=== PATIENT | male | born 1940 | race Caucasian/White ===

== ENCOUNTER 2021-08-22 07:37 | Outpatient (CLI) | payer OTHER, MEDICARE, SELFPAY ==
--- NOTE | 2021-08-22 07:56 | USCV_ITS ---
Brendan Reyes Age: 81 Gender: M : 1940 Exam Date: 08/22/2021 08:01 Ordering Phys: Jewel Kaiser DO Technologist: LYSSA Exam Location: [facility] [place] Indication: bilateral bruit Risk Factors: Previous Vascular Surgery: Right Brachial BP: / Left Brachial BP: / Right Left Velocity (cm/s) Spectral Plaque Velocity (cm/s) Spectral Plaque Syst/Diast Broadening Syst/Diast Broadening 41.90/ 6.70 Prox CCA 53.10 / 11.00 40.80/ 8.30 Mid CCA 44.90 / 12.80 33.80/ 8.90 Distal CCA 29.90 / 6.40 40.60/ 10.60 Prox ICA 31.50 / 10.70 46.40/ 13.10 Mid ICA 66.70 / 16.30 55.70/ 19.10 Distal ICA 61.70 / 17.00 64.60 ECA 53.30 1.36 ICA/CCA 1.49 Antegrade Vertebral Antegrade 30.60/ 11.50 cm/s 17.20/ 3.80 cm/s Tri Subclavian Bi 179.4 114.4 0 0 CONCLUSIONS Right ICA stenosis <50%. Moderate atheromatous plaque right carotid bulb/ICA. Left ICA stenosis <50%. Moderate atheromatous plaque left carotid bulb/ICA. Normal antegrade Doppler flow noted in the right vertebral artery. Normal antegrade Doppler flow noted in the left vertebral artery. Michele Castillo MD (Electronically Signed) Final Date: 22 August 2021 11:33 S
== END 2021-08-22 07:38 | disposition home or self-care (01) ==
PROVIDERS: PCP Nurse Practitioner; Visit Provider Emergency Medicine Emergency Medical Services
DX: R09.89 Other specified symptoms and signs involving the circulatory and respiratory systems (principal); I65.23 Occlusion and stenosis of bilateral carotid arteries
CPT/HCPCS: 93880

== ENCOUNTER 2023-08-19 07:50 | Outpatient (CLI) | payer OTHER, SELFPAY ==
--- NOTE | 2023-08-19 08:00 | USCV_ITS ---
Brendan Reyes Age: 83 Gender: M : 1940 Exam Date: 08/19/2023 08:19 Ordering Phys: Jewel Kaiser DO Technologist: Sharon Scott Exam Location: [facility] [place] Indication: cardiac murmur, HTN, BP: 135 / 65 HR: 52 Rhythm: Atrial fibrillation Technical Quality: Adequate MEASUREMENTS (Male / Female) Normal Values 2D ECHO LV Diastolic Diameter PLAX 4.6 cm 4.2 - 5.9 / 3.9 - 5.3 cm LV Systolic Diameter PLAX 3.4 cm IVS Diastolic Thickness 1.1 cm 0.6 - 1.0 / 0.6 - 0.9 cm IVS Systolic Thickness 2.4 cm LVPW Diastolic Thickness 0.8 cm 0.6 - 1.0 / 0.6 - 0.9 cm LVPW Systolic Thickness 1.1 cm LVOT Diameter 2.1 cm LV Ejection Fraction 2D Teich 53.6 % LV Ejection Fraction MOD 2C 41.3 % LV Ejection Fraction 2C AL 41.0 % LA Diameter 3.2 cm LA Width 4.0 cm LA Height 4.7 cm RA Width 3.2 cm RA Height 4.3 cm Aorta at Sinotubular Diameter 3.4 cm IVC Diameter 1.4 cm M-MODE Aortic Annulus Diameter 2.9 cm LA Ao Ratio MM 1.1 MV E Point Septal Separation 0.7 cm DOPPLER AV Peak Velocity 517.0 cm/s LVOT Peak Velocity 101.0 cm/s AV Area Cont Eq vti 0.7 cm squared AV Area Cont Eq pk 0.7 cm squared MV Peak Velocity 103.0 cm/s MV Area PHT 1.9 cm squared Mitral E to A Ratio 0.7 MV E' Velocity 37.0 cm/s Mitral E to MV E' Ratio 10.9 Mitral E to LV E' Lateral Ratio 9.8 Mitral E to LV E' Septal Ratio 12.4 TR Peak Velocity 248.3 cm/s TR Peak Gradient 24.7 mmHg Right Atrial Pressure 5.0 mmHg Pulmonary Artery Systolic Pressu 29.7 mmHg PV Peak Velocity 358.3 cm/s RV Acceleration Time 0.1 s RV Ejection Time 0.4 s RV AcT/ET 0.3 FINDINGS Left Ventricle Normal left ventricular size and systolic function, EF 62 %. Moderate left ventricular hypertrophy. No regional wall motion abnormalities. Grade I/IV diastolic dysfunction (abnormal relaxation filling pattern), normal to mildly elevated filling pressures. Right Ventricle Normal right ventricular size and systolic function. Right Atrium Normal right atrial size. Left Atrium Mildly increased left atrial size. Mitral Valve Moderate mitral annular calcification. Thickened mitral valve. Aortic Valve Moderate aortic valve calcification. Severe aortic valve stenosis, mean gradient 60 mmHg, JAVY 0.67 cm squared. Peak velocity of 5.17 m/s with a peak gradient of 107 mmHg . Tricuspid Valve Mild tricuspid valve regurgitation. Estimated pulmonary artery peak systolic pressure 46 mmHg Pulmonic Valve The peak velocity across the pulmonic valve was 3.9 m/s with a peak gradient of 61 and a mean gradient of 30 mmHg. Pericardium Normal pericardium without effusion. Aorta Normal ascending aorta dimension. IVC Normal inferior vena cava. CONCLUSIONS . Severe aortic valve stenosis, mean gradient 60 mmHg, JAVY 0.67 cm squared. Peak velocity of 5.17 m/s with a peak gradient of 107 mmHg . Moderate aortic valve calcification. Normal left ventricular size and systolic function, EF 62 %. Moderate left ventricular hypertrophy. No regional wall motion abnormalities. Grade I/IV diastolic dysfunction (abnormal relaxation filling pattern), normal to mildly elevated filling pressures. Mildly increased left atrial size. Moderate mitral annular calcification. Thickened mitral valve. Possible moderate to severe pulmonic valve stenosis with a mean gradient across the pulmonic valve of 30 mmHg Mild pulmonary hypertension with an estimated pulmonary artery peak systolic pressure of 46 mmHg. Mild tricuspid valve regurgitation. There is no pericardial effusion. There are no intracardiac masses. No similar previous studies are available for comparison. Dr. Kaiser's office is contacted with the results . Dr Abigail White MD [facility] (Electronically Signed) Final Date: 19 August 2023 09:29 S
== END 2023-08-19 07:51 | disposition home or self-care (01) ==
LOC: RAD 07:52
PROVIDERS: PCP Nurse Practitioner; Visit Provider Emergency Medicine Emergency Medical Services
DX: R06.09 Other forms of dyspnea (principal); R01.1 Cardiac murmur, unspecified; I10 Essential (primary) hypertension; I35.0 Nonrheumatic aortic (valve) stenosis; I70.0 Atherosclerosis of aorta; I34.81 Nonrheumatic mitral (valve) annulus calcification; I27.20 Pulmonary hypertension, unspecified; I07.1 Rheumatic tricuspid insufficiency
CPT/HCPCS: 93306

== ENCOUNTER 2023-08-23 08:31 | Outpatient (CLI) | payer OTHER, SELFPAY ==
--- NOTE | 2023-08-23 08:44 | ECG_ITS ---
[facility] Test Date: 2023-08-23 Pat Name: Brendan Reyes Department: Room: Gender: Male Pediatric Urologist: : 1940 Requested By: Jewel Sevilla Order Number: [id number] Damon MD: Abigail White M.D. Interpretive Statements NAME OF STUDY: LEXISCAN SESTAMIBI STRESS TEST INDICATION: Exertional Dyspnea PROCEDURE: At the baseline, the EKG revealed sinus bradycardia with a rate of [address]-T changes. Features of LVH. The baseline heart was 55 bpm with a blood pressue of 174/82 mm of Hg Lexiscan was infused over a period of 20 seconds. A total of 0.4 milligrams of Lexiscan was infused. The stress phase was continued for a total of 5 minutes. Heart rate at the end of the stress phase was 76 bpm with a blood pressure 129/69 mm of Hg. The EKG at the peak infusion revealed more prominent ST-T changes in the inferolateral leads. Sestamibi was injected 20 seconds after the Lexiscan infusion. Heart rate at the end of the recovery phase was 76 bpm with a blood pressure of 133/72 mm of Hg. CONCLUSION: 1. No significant EKG changes with the LexiScan infusion 2. No LexiScan induced chest pain or cardiac arrhythmia 3. Normal blood pressure and heart rate response 4. Sestamibi/sestamibi perfusion scan pending; see separate report. Electronically Signed On 08-23-2023 18:54:28 STATIONS SUPERINTENDENT by Abigail White M.D. [email or web address]
--- NOTE | 2023-08-23 08:44 | NMCV_ITS ---
NM anton perf SPECT r/s* [id number] Reyes Brendan Age: 83 Gender: M : 1940 Exam Date: 08/23/2023 08:44 Ordering Phys: Jewel Kaiser DO Technologist: EBENEZER Torres Exam Location: [facility] Indications: EXERTIONAL DYSPNEA STRESS TEST Please see separate stress test report in [facility] for full findings IMAGE PROTOCOL Rest/Stress 1 Lexiscan Day Radiopharmaceutical Dose (mCi) Administration Site Administered by Rest: Tc-99m 10.7 IV EBENEZER Torres Sestamibi Stress:Tc-99m 30.0 IV EBENEZER Roa Sestamibi Rest: 23-Aug-2023 60 Discovery 630 Stress: 23-Aug-2023 30 Discovery 630 0.4mg Lexiscan. Images obtained in supine and prone position. SPECT RESULTS Technical Quality: Excellent Raw Data Analysis: Normal Image Corrections: No attenuation or motion correction applied Summed Stress Score: 11 Summed Rest Score: 6 Summed Difference Score: 5 PERFUSION FINDINGS Moderate area of moderate to severely decreased tracer uptake, involving the mid and apical inferior, mid inferolateral, apical lateral and LV apex. Some reversibility was noted in the apical segments. However the prone imaging, no significant reversibility's were noted FUNCTIONAL RESULTS (calculated via Gated SPECT) Stress Image LV EF (%): 69 Stress EDV (mL):112 TID: 1 Stress ESV (mL):35 FUNCTIONAL FINDINGS: Segmental wall motion analysis revealing no gross wall motion abnormalities IMPRESSIONS 1. Myocardial perfusion imaging revealing moderate area of moderately decreased tracer uptake involving the inferior, inferolateral and apical segments with some reversibility suggesting myocardial scarring with ischemia in the distribution of the left circumflex artery/right coronary artery. Because of the inconsistency with the prone imaging, the reliability is somewhat compromised. 2. Normal LV ejection fraction 69% 3. LV wall motion analysis revealing no gross wall motion abnormalities. 4. Normal LV volume No similar previous studies are available for comparison Dr Abigail White MD [facility] (Electronically Signed) Final Date: 23 August 2023 12:38 S
[2023-08-23 09:06] VITALS: BMI 23.0
[2023-08-23] MEDS: regadenoson 0.4 Mg/5 ml Syringe IVP (10:38)
[2023-08-23 11:05] VITALS: BP 132/84; PULSE 82
== END 2023-08-23 08:32 | disposition home or self-care (01) ==
PROVIDERS: PCP Emergency Medicine Emergency Medical Services; Visit Provider Emergency Medicine Emergency Medical Services
DX: R06.00 Dyspnea, unspecified (principal)
CPT/HCPCS: 36415; 78452; 93017; 96374; A9500; J2785

== ENCOUNTER → 2023-09-05 10:35 | Outpatient (BNVA) | payer OTHER, SELFPAY | PROVIDERS: PCP Emergency Medicine Emergency Medical Services; Referring Provider Emergency Medicine Emergency Medical Services; Visit Provider Internal Medicine Cardiovascular Disease | DX: I35.0 Nonrheumatic aortic (valve) stenosis (principal); R94.39 Abnormal result of other cardiovascular function study; I11.0 Hypertensive heart disease with heart failure; I50.32 Chronic diastolic (congestive) heart failure; I38 Endocarditis, valve unspecified; E78.5 Hyperlipidemia, unspecified; Z79.01 Long term (current) use of anticoagulants; I48.91 Unspecified atrial fibrillation; I25.118 Atherosclerotic heart disease of native coronary artery with other forms of angina pectoris; R53.1 Weakness; J44.9 Chronic obstructive pulmonary disease, unspecified | CPT/HCPCS: 36415; 80053; 80061; 83880; 85025; 85610; 86850; 86900; 99205 ==

== ENCOUNTER 2023-09-06 05:36 | Outpatient (CLI) | payer OTHER, SELFPAY ==
[2023-09-06] VITALS (36 sets, daily range): BP systolic 100–167; BP diastolic 52–70; PULSE 47–71; RESP 14–30; TEMP 36.4–37.2; O2SAT 93–99; BMI 23.0
--- NOTE | 2023-09-06 06:00 | XACV_ITS ---
Exam Room: [facility] Ht: 180 cm Wt: 75 kg BSA: 1.94 m2 Gender: Male : 1940 Exam Priority: Routine Procedure(s): Procedure Description: Diagnostic procedure Procedure Description: PCI procedure Procedure Description: Drug Eluting Coronary Stent Procedure Description: PTCA Procedure Description: Miscellaneous Procedure Description: ACT Procedure Description: Coronary Angiography Procedure Description: Pressure Wire Procedure Description: Intravascular lithotripsy with shockwave balloon Diagnostic Cath Status: Urgent Diagnostic Findings * The left main is a medium caliber vessel with no significant stenotic lesions. * The left anterior descending artery is a medium caliber vessel which appears to wraparound LV apex minimally. Moderate to heavy diffuse calcification was noted in the proximal segment of the artery. There is an area of filling defect noted in the proximal segment, before the first diagonal, causing around 70 to 80% eccentric narrowing. The mid and distal artery was found to have mild diffuse disease. No significant stenotic lesions were noted. The left artery descending artery also was found to have mild diffuse disease in the proximal and mid segment. No significant stenotic lesions were seen. * The circumflex artery is a medium caliber vessel which was found to have moderate diffuse calcification in the proximal and mid segment. There was 30 to 40% diffuse irregular narrowing in these segments. The distal artery was found to have no significant lesions. The artery gives of a high obtuse marginal branch which has minimal intimal irregularities. No significant stenotic lesions were noted. * The right coronary artery was medium caliber dominant vessel which has a high and posterior takeoff. Selective engagement was difficult. Mild diffuse intimal irregularities are noted throughout the vessel. Mild to moderate diffuse coronary calcification was noted throughout the proximal and mid segment of the artery. * Coronary angiography shows right dominance. PCI Status: Elective PCI Indication: Other Interventional Findings * Procedure detail: We engaged the left main artery with XB 3.5 guide catheter. IV heparin was administered to maintain anticoagulation. After normalization IFR wire was advanced into the distal vessel. iFR value of 0.64 was obtained that was significant. We then proceeded with PCI. Proximal part of the vessel was calcified. We advanced a run-through wire and was put in distal vessel. Initially we used 2.5 x 12 mm NC balloon to predilate the stenosis. Then shockwave balloon was used to perform intravascular lithotripsy. It was 3.0 x 12 mm shockwave balloon. We placed 2.5 x 15 mm resolute Akhil drug-eluting stent. Proximally an overlapping stent measuring 2.75 x 18 mm was placed. We then postdilated the stents with 2.75 x 12 mm NC balloon. At this time final angiogram was performed that showed excellent stent expansion, no residual stenosis and PARI-3 flow. Guidewire and guide catheter were removed. Patient left the Slip Maker in a stable condition. * Proximal Left Anterior Descendin% stenosis treated with a MDT NC EUPHORA RX [id number] BALLOON, Shockwave 3.0x12mm, MDT R AKHIL 2.5X15 JAY, MDT R AKHIL 2.75X18 JAY, and MDT NC EUPHORA RX 2.30M45HG BALLOON. 0% residual stenosis, PARI: 3 flow. Conclusions 1. 83-year-old white male, with a history of hypertension, dyslipidemia and COPD presents with progressive shortness of breath. Echocardiogram showed severe aortic valve stenosis with a valve area 0.67 cm2. Patient also had features of diastolic heart failure. He also had a Myocardial perfusion imaging which revealed areas of fixed and revesible defects . For further evaluation of his coronary status as well as the hemodynamics, a left and right heart catheterization with left and right coronary angiogram was recommended. The findings are as follows. 2. The left main with no significant lesions. The left and descending artery was found to have moderate to heavy calcification of proximal segment with an area of filling defect suggesting eccentric stenosis of around 70 to 80%. Diffuse calcification of the proximal segment of the right coronary artery and circumflex artery. 30 to 40% diffuse irregular narrowing in the proximal to mid circumflex artery. Minimal intimal irregularities in the right coronary artery. The right heart catheterization revealed mild pulmonary hypertension with no evidence of any intracardiac shunt. Cardiac output of 4 with an index of 2.0. 3. I discussed and reviewed the cardiac catheterization data with Dr. Barr. There is thought to be appropriate to consider IFR of the LAD lesion and possible PCI. Consider the valve intervention at the later time. 4. Severe proximal LAD stenosis s/p successful revascularization with intravascular lithotripsy using shockwave balloon and did 2 stents. 5. There is obstructive coronary artery disease with one vessel disease. 6. Proximal Left Anterior Descending was treated with a Balloon, Balloon, Drug Eluting Stent, Drug Eluting Stent, and Balloon. Recommendations * Dual antiplatelet therapy for atleast 1 year. * Cardiology follow up in 2 weeks. * Referral for TAVR. Diagnostic RX Recommendation: PCI w/o planned CABG Pressures Phase:Rest AO : 82 / 51 ( 64 ) @ 7:58:00 AM 84 / 63 ( 74 ) @ 8:05:00 AM 89 / 63 ( 76 ) @ 8:26:00 AM 85 / 52 ( 67 ) @ 8:49:00 AM 100 / 50 ( 69 ) @ 9:13:00 AM 85 / 49 ( 65 ) @ 9:29:00 AM 75 / 46 ( 59 ) @ 9:49:00 AM RV : 47 / 0 / 10 @ 7:48:00 AM PA : 57 / 18 ( 30 ) @ 7:46:00 AM RA : a wave = 10 v wave = 9 mean = 8 @ 7:49:00 AM PCW : a wave = 13 v wave = 13 mean = 11 @ 7:47:00 AM O2 Content Phase:Rest PA : O2 Content O2: 66.3 @ 7:58:00 AM Saturations Phase:Rest AO : 95 @ 8:49:00 AM RA : 70 @ 8:26:00 AM RV : 68 @ 8:05:00 AM PA : 66 @ 7:58:00 AM Cardiac Output Phase:Rest Jean Paul : 4 @ 1:34:28 PM Jean Paul Cardiac Index: 2 @ 1:34:28 PM Flow Phase:Rest Qp : 4 @ 1:34:28 PM Qs : 5 @ 1:34:28 PM Clinical Evaluation EBL: 5mL-10mL Procedural Details Procedure Consent Obtained. Admit Source: Out Patient. Pre-Procedure Time Out. Identified patient by full name and date of as verbalized by the patient/guarantor. Does the consent match the physician's order: Yes. Accurate & Complete Informed Consent: Yes. Inpatient/Outpatient History & Physical on Chart: Yes. If H&P is completed, is and addenduem needed: No; If yes, is the addendum complete: N/A. Visualize and Verify Site with Patient/Guarantor: N/A. Relevant Radiology Images available: Yes. Pre-op teaching completed and patient verbalized understanding. The risks, benefits, and alternatives of sedation and/or procedure were discussed by physician. The patient agrees to continue. Procedure started. [facility] Clinical Fraility Score: 4: Vulnerable. Slip Maker Indications: Cardiomyopathy. Chest Pain Symptom Assessment: Asymptomatic. Correct patient, site and procedure confirmed by cath team. Current diagnosis: CHF, Abnormal Stress Test. PERRLA. Strong, equal hand rotor winder bilaterally. Lungs clear x 5 lobes. IV Site on Arrival: 20 gauge in the left anticubital. IV Site on Arrival: 20 gauge in the right anticubital. IV Fluids: 0.9% NaCl at KVO. 0 mL infused prior to clinical laboratory scientist. Pre Procedural Pulses: bilateral radial was 3+. Pre Procedural Pulses: bilateral dorsalis pedis was 2+. Pre Procedural Pulses: bilateral posterior tibial was 2+. Oxygen started at 2liters/min via nasal canula. right groin was prepped with chloroprep then draped in the usual sterile fashion. right radial was prepped with chloroprep then draped in the usual sterile fashion. Baseline sample Acquired. HR: 51 BPM. Physician notified. Physician arrived. Physician scrubbed in. Immediate Pre-Procedure Time Out. Correct Patient: Yes; Correct Procedure: Yes; Correct Site: Yes; Correct Patient Position: Yes; Correct Supplies: Yes; Dried Flammable Prep: Yes; Blood Products Available: N/A;. Lidocaine 1% infiltrated to the right brachial. Wire inserted through R brachial IV access site. IV catheter removed over wire. 6Fr sheath inserted over wire into R brachial vein. Archer-Scooby MON catheter inserted. Hand injection performed through the Archer-Scooby catheter. Sage wire inserted through the Archer-Scooby catheter. Sage wire removed. Pressure measurements obtained. Archer-Scooby out. Lidocaine 1% infiltrated to the right radial. Arterial access obtained. ABG drawn and sent with respiratory therapy. A 5 syrian Jean-Pierre catheter in over wire. Multiple views taken of left coronary artery. Catheter removed over the exchange wire. A 5 syrian JR4 catheter in over wire. Catheter removed over the exchange wire. A 5 syrian 3DRC catheter in over wire. Catheter removed over the exchange wire. A 5 syrian AR MOD catheter in over wire. Angiography performed of RCA. Catheter removed over the exchange wire. A 5 syrian JR4 catheter in over wire. Patient's family updated. Catheter removed over the exchange wire. A 5 syrian 3DRC catheter in over wire. Catheter removed over the exchange wire. Dr. Barr scrubbed in to perform intervention. 6 syrian XB 3.5 guide catheter was inserted over the wire. IFR guidewire was advanced through the guide catheter to lesion in the prox LAD. IFR spot of Prox LAD 0.65. Runthrough guidewire was advanced through the guide catheter to lesion in the prox LAD. IFR wire removed. ACT drawn. Results 383 seconds. Therapeutic limits - pre-heparin administration 90-150 seconds and monitoring heparin during a vascular procedure >250 seconds. 3.0 x 12mm Shockwave catheter in over the wire. Shockwave catheter out over the wire. Guideliner inserted over the wire. Shockwave catheter inserted over the wire. Shockwave catheter removed. Balloon inserted to lesion in the prox LAD. Inflation number : 1 A MDT NC EUPHORA RX 2.17X99IC BALLOON was prepped and advanced across the Prox LAD , then inflated to 6 ERMA for 0:10 seconds. Inflation number: 2 The MDT NC EUPHORA RX 2.36O37UG BALLOON was reinflated across the Prox LAD, to 6 ERMA for 0:15 seconds. Inflation number: 3 The MDT NC EUPHORA RX 2.13O98DJ BALLOON was reinflated across the Prox LAD, to 8 ERMA for 0:15 seconds. Inflation number: 4 The MDT NC EUPHORA RX 2.40L51BD BALLOON was reinflated across the Prox LAD, to 6 ERMA for 0:08 seconds. Balloon out. Shockwave balloon inserted over the wire. Inflation number : 5 A Shockwave 3.0x12mm was prepped and advanced across the Prox LAD , then inflated to 4 ERMA for 0:14 seconds. Inflation number: 6 The Shockwave 3.0x12mm was reinflated across the Prox LAD, to 4 ERMA for 0:16 seconds. Shockwave balloon out over the wire. Balloon inserted to lesion in the prox LAD. Inflation number: 7 The MDT NC EUPHORA RX 2.03Y87GI BALLOON was reinflated across the Prox LAD, to 12 ERMA for 0:08 seconds. Inflation number: 8 The MDT NC EUPHORA RX 2.12U35QY BALLOON was reinflated across the Prox LAD, to 12 ERMA for 0:06 seconds. Inflation number: 9 The MDT NC EUPHORA RX 2.40I64OC BALLOON was reinflated across the Prox LAD, to 12 ERMA for 0:08 seconds. Inflation number: 10 The MDT NC EUPHORA RX 2.69E17PY BALLOON was reinflated across the Prox LAD, to 12 ERMA for 0:07 seconds. Balloon out. 2.75 x 30mm Stent inserted to lesion in the prox LAD. Unable to cross lesion. Intact stent out over the wire. 2.5 x 15mm Stent inserted to lesion in the prox LAD. Unable to cross lesion. Intact stent out over the wire. Shockwave Balloon inserted to lesion in the prox LAD. Shockwave balloon out over wire. Stent inserted to lesion in the prox LAD. Inflation Number : 11 A MDT R AKHIL 2.5X15 JAY -Lot Number# [id number] Exp 05/20/2025 was prepped and advanced across the Prox LAD. The stent was deployed at 12 ERMA for 0:13 seconds. Stent balloon out over wire. Stent inserted to lesion in the prox LAD. Inflation Number : 12 A MDT R AKHIL 2.75X18 JAY -Lot Number# [id number] Exp 01/05/26 was prepped and advanced across the Prox LAD. The stent was deployed at 12 ERMA for 0:16 seconds. Stent balloon out over wire. Balloon inserted to lesion in the prox LAD. Inflation number : 13 A MDT NC EUPHORA RX 2.81W98EH BALLOON was prepped and advanced across the Prox LAD , then inflated to 12 ERMA for 0:08 seconds. Inflation number: 14 The MDT NC EUPHORA RX 2.31O14RE BALLOON was reinflated across the Prox LAD, to 16 ERMA for 0:15 seconds. Inflation number: 15 The MDT NC EUPHORA RX 2.32P97MB BALLOON was reinflated across the Prox LAD, to 20 ERMA for 0:15 seconds. Inflation number: 16 The MDT NC EUPHORA RX 2.82P59OF BALLOON was reinflated across the Prox LAD, to 20 ERMA for 0:12 seconds. Balloon out. Guideliner out. Results checked. Wire out. ACT drawn. Results 391 seconds. Therapeutic limits - pre-heparin administration 90-150 seconds and monitoring heparin during a vascular procedure >250 seconds. Guide catheter out. Physician scrubbed out. A Manual Compression was successful obtaining hemostatsis at the Right Brachial Vein insertion site. A TR Band was successful obtaining hemostatsis at the Right Radial artery insertion site. Post Procedure: Pulses reassessed and unchanged. PERRLA. Strong, equal hand rotor winder bilaterally. No VTE prophylaxis required. Medication's Wasted: Nitro = 49.8 mg. Medication's Wasted: Lidocaine 1% = 3 mL. Medication's Wasted: Other = Fentanyl 50mcg. Total IV fluids: 416 mL. Post-op diagnosis: Severe Prox LAD stenosis S/P stenting x2. Medication's Wasted: Heparin = 2000 u. Complications: none. Estimated blood loss: 5mL-10mL. Responsiveness - Normal response to verbal stimuli; alert and oriented, PERRLA. Airway - Unaffected, no intervention required; spontaneous ventilation. Circulation: W/N/L, pulses unchanged. Nausea/Vomiting: No. Procedure completed. Patient transferred by wheelchair to CPRU. Vital chart was stopped. Access Site Site: Right Brachial Vein Sheath Size: 6 Fr Hemostasis Method: Manual Compression Hemostasis Success: Successful Site: Right Radial artery Sheath Size: 6 Fr Hemostasis Method: TR Band Hemostasis Success: Successful Procedure Medications Start: 7:35 AM Stop: 7:35 AM Medication: Versed Amount: 1 mg Route: I.V. Start: 7:35 AM Stop: 7:35 AM Medication: Fentanyl Amount: 25 mcg Route: I.V. Start: 7:55 AM Stop: 7:55 AM Medication: Nitrogylcerin Amount: 200 mcg Route: I.A. Start: 7:55 AM Stop: 7:55 AM Medication: Verapamil Amount: 5 mg Route: I.A. Start: 7:56 AM Stop: 7:56 AM Medication: 0.9% Saline Amount: 250 ml Route: I.V. bolus Start: 7:57 AM Stop: 7:57 AM Medication: Heparin Amount: 5000 units Route: I.V. Start: 8:32 AM Stop: 8:32 AM Medication: Versed Amount: 1 mg Route: I.V. Start: 8:48 AM Stop: 8:48 AM Medication: Heparin Amount: 2000 units Route: I.V. Start: 9:20 AM Stop: 9:20 AM Medication: Versed Amount: 1 mg Route: I.V. Start: 9:20 AM Stop: 9:20 AM Medication: Fentanyl Amount: 25 mcg Route: I.V. Start: 9:22 AM Stop: 9:22 AM Medication: Heparin Amount: 1000 units Route: I.V. Start: 9:35 AM Stop: 9:35 AM Medication: Fentanyl Amount: 25 mcg Route: I.V. Start: 9:36 AM Stop: 9:36 AM Medication: Versed Amount: 1 mg Route: I.V. Start: 10:01 AM Stop: 10:01 AM Medication: Plavix Amount: 600 mg Route: P.O. I, the attending physician, have reviewed and verified all procedure medications. Yes, all medications given per verbal order History/Risk Factors Hypertension: Yes Dyslipidemia: Yes Peripheral Arterial Disease (PAD): No Myocardial Infarction (VA): No Obesity: No Renal Disease: No Tobacco Use: Former Prior Interventions PCI: No CABG: No Valve Surgery: No Report Signatures Finalized by Dr Abigail White MD [facility] on 09/29/2023 08:03 PM
[2023-09-06] MEDS: aspirin 325 mg Tablet PO (06:34)
[2023-09-06] MEDS: diphenhydrAMINE 50 mg Capsule PO (06:34)
--- NOTE | 2023-09-06 07:00 | P.HPUD_ITS ---
Surgery/Procedure H&P Update DATE OF PROCEDURE: September 06, 2023 DATE H&P PERFORMED: 09/05/23 H&P UPDATE INFORMATION: I have reviewed H&P completed within last 30 days, I have examined patient prior to procedure and No changes to prior documentation PREOP DIAGNOSIS: Severe / CHF PRIMARY INDICATION FOR PROCEDURE: CHF,/ CP PLANNED PROCEDURE: Operation Date: 09/06/23 07:00 Proposed Procedures p [facility] [address]88 I35.0,R94.39,I50.30,I38 ,I10,E78.5(Bilateral) - Abigail White MD PATIENT REASSESSED PRIOR TO SEDATION, WITH NO CHANGE NOTED: Yes PHYSICAL EXAM: alert, oriented x 3, clear to auscultation bilaterally and regular rate & rhythm AIRWAY EVAL/ANESTHESIA PLAN: normal airway, see other exam findings, ASA III, Monitored Anesthesia, Local Anesthesia, Risks, benefits & alternatives of sedation and/or procedure discussed and Patient agrees to continue as planned
[2023-09-06 08:11] LABS: Arterial Blood Gas Hematocrit 14.7 % (42-52); Blood Gas Operator Identificat glc; Blood Gas Sample Site Not specified; Blood Gas Sample Type Not specified; Carboxyhemoglobin 1.2 %THgb (0.4-20.1); HGB O2 Sat 92.7 % (95-100); Methemoglobin 1.2 % (0.4-1.5); Total Hemoglobin 4.8 g/dL (14-18)
[2023-09-06 08:15] LABS: Arterial Blood Gas Hematocrit 27.7 % (42-52); Blood Gas Operator Identificat glc; Blood Gas Sample Site Not specified; Blood Gas Sample Type Not specified; Carboxyhemoglobin 1.3 %THgb (0.4-20.1); HGB O2 Sat 68.7 % (95-100); Methemoglobin 0.7 % (0.4-1.5)
[2023-09-06 08:19] LABS: Blood Gas Operator Identificat glc; Blood Gas Sample Site Not specified; Blood Gas Sample Type Not specified; Carboxyhemoglobin 1.2 %THgb (0.4-20.1); HGB O2 Sat 66.4 % (95-100); Methemoglobin 0.6 % (0.4-1.5); Total Hemoglobin 11.4 g/dL (14-18)
[2023-09-06 08:22] LABS: Arterial Blood Gas Hematocrit 41.6 % (42-52); Blood Gas Operator Identificat glc; Blood Gas Sample Site Not specified; Blood Gas Sample Type Not specified; Carboxyhemoglobin 1.2 %THgb (0.4-20.1); HGB O2 Sat 65.2 % (95-100); Methemoglobin 0.5 % (0.4-1.5); Total Hemoglobin 13.6 g/dL (14-18)
[2023-09-06] MEDS: pantoprazole DR 40 mg Tablet PO (14:45)
[2023-09-06] MEDS: alfuzosin 10 mg ER Tablet PO (19:58)
[2023-09-06] MEDS: atorvastatin 40 mg Tablet 20 MG PO (19:58)
[2023-09-06] MEDS: finasteride 5 mg Tablet PO (19:59)
[2023-09-06] MEDS: gabapentin 100 mg Capsule PO (19:59)
[2023-09-07] VITALS: BP 131/60; PULSE 62; RESP 19; TEMP 37.1; O2SAT 95
[2023-09-07 04:00] VITALS: BP 123/59; PULSE 70; RESP 22; TEMP 37.2; O2SAT 95
[2023-09-07 04:09] LABS: Basophils # 0.1 10^3/uL (0.0-0.1); Basophils % 1.2 %; Eosinophils # 0.2 10^3/uL (0.0-0.8); Eosinophils % 2.2 %; Hematocrit 35.8 % (37-53); Lymphocytes % 13.2 %; Mean Corpuscular HGB Conc 33.2 g/dL (30-55); Mean Corpuscular Hemoglobin 30.7 pg (27-33); Mean Corpuscular Volume 92.5 fl (82-101); Mean Platelet Volume 9.1 fL (7.4-10.4); Monocytes # 0.8 10^3/uL (0.2-0.9); Monocytes % 10.9 %; Neutrophils # 5.38 10^3/uL (1.8-7.7); Neutrophils % 72.2 %; Nucleated Red Blood Cells % 0 %; Platelet Count 186 10^3/cmm (157-399); Red Blood Count 3.87 10^6/uL (3.85-5.65); Red Cell Distribution Width 13.8 % (12.1-15.1); White Blood Count 7.44 10^3/uL (3.29-11.43)
[2023-09-07 04:35] LABS: Blood Urea Nitrogen 14 mg/dL (8-23); Calcium 8.7 mg/dL (8.5-10.5); Carbon Dioxide 29 mmol/L (22-29); Chloride 101 mmol/L (98-107); Glucose 105 mg/dL (65-115); Osmolality Calculated 287 mOsm/kg (285-295); Sodium 138 mmol/L (136-145)
[2023-09-07 06:00] VITALS: PULSE 60
[2023-09-07 07:40] VITALS: BP 120/60; PULSE 63; RESP 15; TEMP 36.5; O2SAT 94
[2023-09-07] MEDS: aspirin 81 mg EC Tablet PO (08:18)
[2023-09-07] MEDS: losartan 50 mg Tablet 100 MG PO (08:18)
[2023-09-07] MEDS: pantoprazole DR 40 mg Tablet PO (08:18)
[2023-09-07] MEDS: metoprolol succinate ER (24 HR) 100 mg Tablet PO (08:18)
[2023-09-07] MEDS: clopidogrel 75 mg Tablet PO (08:18)
[2023-09-07] MEDS: hydroCHLOROthiazide 25 mg Tablet PO (08:18)
--- NOTE | 2023-09-07 10:40 | PM.PN ---
Subjective Subjective: This patient had a cardiac catheterization yesterday. He was found to have a hemodynamically significant stenosis in the proximal LAD. He underwent PCI of this lesion by Dr. Barr. He was admitted to hospital for further monitoring and management. He remained stable throughout the hospital course. Did not have any hematoma bleeding from the arterial puncture site. The vital signs remained stable. Medications: Medication Review Details: Current Medications Acetaminophen (Acetaminophen 325 Mg Tablet) 650 mg PO Q6H PRN PRN Reason: MILD PAIN Al Hydrox/Mg Hydrox/Simethicone (Ijxn-Gxs-Lllmdtyhy-Edison 30 Ml Udc) 30 ml PO Q15M PRN PRN Reason: INDIGESTION Alfuzosin HCl (Alfuzosin 10 Mg Er Tablet) 10 mg PO BEDTIME REPLACED BY [facility] Last Admin: 09/06/23 19:58 Dose: 10 mg Aspirin (Aspirin 81 Mg Ec Tablet) 81 mg PO DAILY REPLACED BY [facility] Last Admin: 09/07/23 08:18 Dose: 81 mg Atorvastatin Calcium (Atorvastatin 40 Mg Tablet) 20 mg PO BEDTIME REPLACED BY [facility] Last Admin: 09/06/23 19:58 Dose: 20 mg Atropine Sulfate (Atropine 1 Mg/Ml Sdv 1 Ml) 0.5 mg IVP PRN PRN PRN Reason: Symptomatic bradycardia Clopidogrel Bisulfate (Clopidogrel 75 Mg Tablet) 75 mg PO DAILY REPLACED BY [facility] Last Admin: 09/07/23 08:18 Dose: 75 mg Fentanyl (Fentanyl 50 Mcg/Ml Inj 2ml) 50 mcg IVP PRN PRN PRN Reason: Prior to sheath removal Finasteride (Finasteride 5 Mg Tablet) 5 mg PO BEDTIME REPLACED BY [facility] Last Admin: 09/06/23 19:59 Dose: 5 mg Gabapentin (Gabapentin 100 Mg Capsule) 100 mg PO BEDTIME REPLACED BY [facility] Last Admin: 09/06/23 19:59 Dose: 100 mg Hydrochlorothiazide (Hydrochlorothiazide 25 Mg Tablet) 25 mg PO DAILY REPLACED BY [facility] Last Admin: 09/07/23 08:18 Dose: 25 mg Losartan Potassium (Losartan 50 Mg Tablet) 100 mg PO DAILY REPLACED BY [facility] Last Admin: 09/07/23 08:18 Dose: 100 mg Magnesium Hydroxide (Magnesium Hydroxide 30 Ml Udc) 30 ml PO DAILY PRN PRN Reason: CONSTIPATION Metoprolol Succinate (Metoprolol Succinate Er (24 Hr) 100 Mg Tablet) 100 mg PO DAILY REPLACED BY [facility] Last Admin: 09/07/23 08:18 Dose: 100 mg Naloxone HCl (Naloxone 0.4 Mg/Ml Sdv) 0.1 mg IVP Q2M PRN PRN Reason: RESPIRATORY RATE < 8/MIN Nitroglycerin (Nitroglycerin 0.4 Mg Sublingual Tablet) 0.4 mg SUBLINGUAL Q5M PRN PRN Reason: CHEST PAIN Pantoprazole Sodium (Pantoprazole Dr 40 Mg Tablet) 40 mg PO DAILY [facility]ILAH Last Admin: 09/07/23 08:18 Dose: 40 mg Temazepam (Temazepam 15 Mg Capsule) 15 mg PO BEDTIME PRN PRN Reason: INSOMNIA Vitals/I&O/Wt Last Vital Signs Temp 97.7 F 09/07/23 07:40 Pulse 63 09/07/23 07:40 Resp 15 09/07/23 07:40 BP 120/60 09/07/23 07:40 Pulse Ox 94 09/07/23 07:40 O2 Del Method Room Air 09/07/23 07:40 09/06/23 09/07/23 09/07/23 22:59 06:59 14:59 Intake Total 300 / 300 480 / 480 Balance 300 / 300 480 / 480 Weight last 48 hrs Weight 154 lb 8 oz Weight 165 lb Weight 165 lb Physical Exam Narrative: GENERAL: The patient is alert and oriented times three. Not in any acute distress. HEENT: No significant pallor, icterus or lymphadenopathy.Oral cavity: There are no mucous membrane lesions. NECK: Trachea appears to be central. No masses noted. No JVD or thyromegaly appreciated. RESPIRATORY: Chest is symmetrical. No intercostals muscle retraction or any accessory muscle activation. There is no chest wall tenderness. Breath sounds are heard bilaterally. No rales or rhonchi heard. No evidence of any consolidation. BREASTS: Deferred. HEART: The heart sounds are normal. No S3 or S4. Ejection systolic murmur grade 4 or 6 in the aortic area. No diastolic murmurs. No pericardial rub ABDOMEN: No vessel pulsations or distention. No tenderness. No organomegaly appreciated. Bowel sounds are normally heard. : Deferred. RECTAL: Deferred. LYMPHATIC: No lymphadenopathy noted in the neck. EXTREMITIES: No edema or cyanosis. No clubbing. The radial arterial puncture site has no hematoma bleeding MUSCULOSKELETAL: No acute joint deformities or swelling SKIN: There are no significant rashes or ecchymosis NEUROPSYCHIATRIC: The patient is alert and oriented x3. Appears to be in a good mood. No tremors or rigidity noted. Data 09/07/23 03:53 09/07/23 03:53 Other Labs: Laboratory Last Values WBC 7.44 10^3/uL (3.29-11.43) 09/07/23 03:53 RBC 3.87 10^6/uL (3.85-5.65) 09/07/23 03:53 Hgb 11.90 g/dL (11.27-16.99) 09/07/23 03:53 Hct 35.8 % (37-53) L 09/07/23 03:53 MCV 92.5 fl (82-101) 09/07/23 03:53 MCH 30.7 pg (27-33) 09/07/23 03:53 MCHC 33.2 g/dL (30-55) 09/07/23 03:53 RDW 13.8 % (12.1-15.1) 09/07/23 03:53 Plt Count 186 10^3/cmm (157-399) 09/07/23 03:53 MPV 9.1 fL (7.4-10.4) 09/07/23 03:53 Neut % (Auto) 72.2 % 09/07/23 03:53 Lymph % (Auto) 13.2 % 09/07/23 03:53 Meigs % (Auto) 10.9 % 09/07/23 03:53 Eos % (Auto) 2.2 % 09/07/23 03:53 Baso % (Auto) 1.2 % 09/07/23 03:53 Neut # (Auto) 5.38 10^3/uL (1.8-7.7) 09/07/23 03:53 Lymph # (Auto) 1.0 10^3/uL (0.8-4.8) 09/07/23 03:53 Meigs # (Auto) 0.8 10^3/uL (0.2-0.9) 09/07/23 03:53 Eos # (Auto) 0.2 10^3/uL (0.0-0.8) 09/07/23 03:53 Baso # (Auto) 0.1 10^3/uL (0.0-0.1) 09/07/23 03:53 Nucleated RBC % (auto) 0 % 09/07/23 03:53 Nucleated RBCs # 0.0 /100WBC 09/07/23 03:53 Specimen Type Not specified 09/06/23 08:00 Specimen Type Not specified 09/06/23 08:00 Specimen Type Not specified 09/06/23 08:00 Specimen Type Not specified 09/06/23 08:00 Sample Site Not specified 09/06/23 08:00 Sample Site Not specified 09/06/23 08:00 Sample Site Not specified 09/06/23 08:00 Sample Site Not specified 09/06/23 08:00 Tae Test N/a 09/06/23 08:00 Tae Test N/a 09/06/23 08:00 Tae Test N/a 09/06/23 08:00 Tae Test N/a 09/06/23 08:00 A-a O2 Gradient Not Reportable 09/06/23 08:00 A-a O2 Gradient Not Reportable 09/06/23 08:00 A-a O2 Gradient Not Reportable 09/06/23 08:00 A-a O2 Gradient Not Reportable 09/06/23 08:00 Hematocrit 14.7 % (42-52) L 09/06/23 08:00 Hematocrit 27.7 % (42-52) L 09/06/23 08:00 Hematocrit 35.0 % (42-52) L 09/06/23 08:00 Hematocrit 41.6 % (42-52) L 09/06/23 08:00 Hgb O2 Saturation 65.2 % (95-100) L 09/06/23 08:00 Hgb O2 Saturation 66.4 % (95-100) L 09/06/23 08:00 Hgb O2 Saturation 68.7 % (95-100) L 09/06/23 08:00 Hgb O2 Saturation 92.7 % (95-100) L 09/06/23 08:00 Carboxyhemoglobin 1.2 %THgb (0.4-20.1) 09/06/23 08:00 Carboxyhemoglobin 1.2 %THgb (0.4-20.1) 09/06/23 08:00 Carboxyhemoglobin 1.2 %THgb (0.4-20.1) 09/06/23 08:00 Carboxyhemoglobin 1.3 %THgb (0.4-20.1) 09/06/23 08:00 Methemoglobin 0.5 % (0.4-1.5) 09/06/23 08:00 Methemoglobin 0.6 % (0.4-1.5) 09/06/23 08:00 Methemoglobin 0.7 % (0.4-1.5) 09/06/23 08:00 Methemoglobin 1.2 % (0.4-1.5) 09/06/23 08:00 Total Hemoglobin 4.8 g/dL (14-18) L 09/06/23 08:00 Total Hemoglobin 9.0 g/dL (14-18) L 09/06/23 08:00 Total Hemoglobin 11.4 g/dL (14-18) L 09/06/23 08:00 Total Hemoglobin 13.6 g/dL (14-18) L 09/06/23 08:00 O2 Delivery Device Not Reportable 09/06/23 08:00 O2 Delivery Device Not Reportable 09/06/23 08:00 O2 Delivery Device Not Reportable 09/06/23 08:00 O2 Delivery Device Not Reportable 09/06/23 08:00 Assembler Dielectric Heater ID glc 09/06/23 08:00 Assembler Dielectric Heater ID glc 09/06/23 08:00 Assembler Dielectric Heater ID glc 09/06/23 08:00 Assembler Dielectric Heater ID glc 09/06/23 08:00 Sodium 138 mmol/L (136-145) 09/07/23 03:53 Potassium 4.0 mmol/L (3.5-5.1) 09/07/23 03:53 Chloride 101 mmol/L (98-107) 09/07/23 03:53 Carbon Dioxide 29 mmol/L (22-29) 09/07/23 03:53 Anion Gap 12.0 (5-19) 09/07/23 03:53 BUN 14 mg/dL (8-23) 09/07/23 03:53 Creatinine 1.0 mg/dL (0.7-1.2) 09/07/23 03:53 GFR Calculation Not Reportable 09/07/23 03:53 Glucose 105 mg/dL (65-115) 09/07/23 03:53 Calculated Osmolality 287 mOsm/kg (285-295) 09/07/23 03:53 Calcium 8.7 mg/dL (8.5-10.5) 09/07/23 03:53 Other data: Cardiac catheterization yesterday 1. 83-year-old white male, with a history of hypertension, dyslipidemia and COPD presents with progressive shortness of breath. Echocardiogram showed severe aortic valve stenosis with a valve area 0.67 cm2. Patient also had features of diastolic heart failure. He also had a Myocardial perfusion imaging which revealed areas of fixed and revesible defects . For further evaluation of his coronary status as well as the hemodynamics, a left and right heart catheterization with left and right coronary angiogram was recommended. The findings are as follows. 2. The left main with no significant lesions. The left and descending artery was found to have moderate to heavy calcification of proximal segment with an area of filling defect suggesting eccentric stenosis of around 70 to 80%. Diffuse calcification of the proximal segment of the right coronary artery and circumflex artery. 30 to 40% diffuse irregular narrowing in the proximal to mid circumflex artery. Minimal intimal irregularities in the right coronary artery. The right heart catheterization revealed mild pulmonary hypertension with no evidence of any intracardiac shunt. Cardiac output of 4 with an index of 2.0.. 3. I discussed and reviewed the cardiac catheterization data with Dr. Barr. There is thought to be appropriate to consider IFR of the LAD lesion and possible PCI. Consider the valve intervention at the later time. A&P Assessment and plan (1) Severe aortic valve stenosis: This patient will be referred for a possible TAVR at the [facility]. This was discussed the patient and family in detail which she understood well. (2) Atherosclerotic heart disease of [place] coronary artery with other forms of angina pectoris: Status post PCI of the LAD, currently remained stable. May continue on the current medications. Will continue the Plavix, aspirin, statin and beta-jessica (3) Diastolic heart failure due to valvular disease: Currently compensated. Qualifiers: Heart failure chronicity: chronic Qualified Code(s): I50.32 - Chronic diastolic (congestive) heart failure; I38 - Endocarditis, valve unspecified (4) Benign essential HTN: Currently normotensive. Will continue on the current medications. (5) Dyslipidemia: Continue on the statin. Plan Patient will be discharged home today. Will be seen in the clinic in a week by the nurse practitioner. Will make arrangements to be seen by Dr. Spann at the [facility] in [place] for possible TAVR I will be seeing him in the office as scheduled Attestations Medical Necessity Statement*: Discharge home today Coding Level of Care Code 84756 Diagnoses Severe aortic valve stenosis I35.0 Atherosclerotic heart disease of [place] coronary artery with other forms of angina pectoris I25.118 Chronic diastolic heart failure due to valvular disease I50.32; I38 Heart failure chronicity: chronic Benign essential HTN I10 Dyslipidemia E78.5
[2023-09-07 11:28] VITALS: BP 120/60; PULSE 63; RESP 15; TEMP 36.5; O2SAT 94
--- NOTE | 2023-09-07 12:33 | PC.CHAP ---
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 [] Patient/Family/Request visit [] Outpatient visit [] Follow-up visit [] Physician referral [] Code/Alert [] Routine visit [] Staff referral [] Actively dying [] Patient sleeping [] Family support [] [] Out of room [] Palliative care [] [] Receiving care in room [] Pre-surgical visit [] Trauma [] Long length of stay [] ICU visit [] Other: Relational/Emotional Strength [] Patient feels connected with others/family/visitors/staff [] Distress [] Loneliness/isolation [] Abandonment Spirituality of Patient [] Person of Luana [] Attends Hinduism of their Luana [] Believes in Prayer [] Reads Bible or Mormonism materials [] There are Spiritual issues to be addressed Insurance Loss Assessor Interventions [] Prayer [] Active listening [] Non-anxious presence [] Spiritual/emotional support [] Crisis/trauma care [] Spiritual counseling [] Bereavement support [] Provided bereavement packet [] Provided Bible/devotional materials [] Provided toy/stuffed animal, coloring book to patient or family member [] Provided Communion [] Anointing/Tok [] Salvation [] Completed spiritual assessment [] Other: Impact on Illness or Injury [] Angry [] Fearful [] Anxious [] Often cries [] Exhaustion [] Unable to work [] Unable to attend caodaism [] Unable to walk/stand [] Unable to read [] Unable to drive [] Unable to eat/drink [] Unable to sleep [] Unable to be with family [] Patient intubated [] Other: Summary Time spent with patient 1 min
--- NOTE | 2023-09-07 13:32 | PC.NURSE ---
Discharge Note Patient discharged to [home] via [w/c to POV] accompanied by [daughter]. Discharge instructions reviewed with patient and/or energy conservation representative. Mobile pharmacy medications and/or prescriptions provided. Belongings/home medications returned.
== END 2023-09-07 13:33 | disposition home or self-care (01) ==
LOC: CCL 05:40 → CSU 21:00
PROVIDERS: Internal Medicine; PCP Emergency Medicine Emergency Medical Services; Visit Provider Internal Medicine Cardiovascular Disease
DX: I35.0 Nonrheumatic aortic (valve) stenosis (principal); I11.0 Hypertensive heart disease with heart failure; I50.32 Chronic diastolic (congestive) heart failure; Z82.49 Family history of ischemic heart disease and other diseases of the circulatory system; E78.5 Hyperlipidemia, unspecified; J44.9 Chronic obstructive pulmonary disease, unspecified; Z87.891 Personal history of nicotine dependence; I25.118 Atherosclerotic heart disease of native coronary artery with other forms of angina pectoris; I38 Endocarditis, valve unspecified; N40.0 Benign prostatic hyperplasia without lower urinary tract symptoms; M19.90 Unspecified osteoarthritis, unspecified site
CPT/HCPCS: 36415; 80048; 82810; 85025; 85347; 93456; 93571; 96361; 96365; 99152; 99153; C1725; C1751; C1769; C1874; C1887; C1894; C9600; J1644; J2250; J3010; J3490; J7030; Q0163; Q9967

== ENCOUNTER → 2023-09-13 08:50 | Outpatient (BNVA) | payer OTHER, SELFPAY | PROVIDERS: PCP Emergency Medicine Emergency Medical Services; Visit Provider Nurse Practitioner Family | DX: I35.0 Nonrheumatic aortic (valve) stenosis (principal); I10 Essential (primary) hypertension; I25.118 Atherosclerotic heart disease of native coronary artery with other forms of angina pectoris | CPT/HCPCS: 36415; 80048; 83880; 99214 ==

== ENCOUNTER → 2023-11-14 09:30 | Outpatient (BNVA) | payer OTHER, SELFPAY | PROVIDERS: PCP Emergency Medicine Emergency Medical Services; Visit Provider Internal Medicine Cardiovascular Disease | DX: Z95.2 Presence of prosthetic heart valve (principal) | CPT/HCPCS: 93005 ==

== ENCOUNTER → 2023-11-26 10:08 | Outpatient (BNVA) | payer OTHER, SELFPAY | PROVIDERS: PCP Emergency Medicine Emergency Medical Services; Visit Provider Nurse Practitioner Family | DX: Z95.2 Presence of prosthetic heart valve (principal); I25.118 Atherosclerotic heart disease of native coronary artery with other forms of angina pectoris | CPT/HCPCS: 36415; 80053; 85025; 99214 ==

== ENCOUNTER 2023-12-26 09:56 | Outpatient (CLI) | payer OTHER, SELFPAY ==
[2023-12-26 10:47] LABS: Anion Gap 10.4 (5-19); Blood Urea Nitrogen 9 mg/dL (8-23); Calcium 8.6 mg/dL (8.5-10.5); Carbon Dioxide 28 mmol/L (22-29); Chloride 103 mmol/L (98-107); Glucose 115 mg/dL (65-115); NT Pro B Type Natriuretic Pept 584 pg/mL (0-450); Osmolality Calculated 284 mOsm/kg (285-295); Potassium 4.4 mmol/L (3.5-5.1); Sodium 137 mmol/L (136-145)
== END 2023-12-26 09:57 | disposition home or self-care (01) ==
LOC: RAD 09:57
PROVIDERS: PCP Emergency Medicine Emergency Medical Services; Visit Provider Nurse Practitioner Family
DX: I10 Essential (primary) hypertension (principal)
CPT/HCPCS: 36415; 80048; 83880

== ENCOUNTER → 2024-03-26 09:44 | Outpatient (BNVA) | payer OTHER, SELFPAY | PROVIDERS: PCP Emergency Medicine Emergency Medical Services; Visit Provider Internal Medicine Cardiovascular Disease | DX: I25.118 Atherosclerotic heart disease of native coronary artery with other forms of angina pectoris (principal); Z95.2 Presence of prosthetic heart valve; I10 Essential (primary) hypertension; E78.5 Hyperlipidemia, unspecified | CPT/HCPCS: 99214 ==

== ENCOUNTER → 2024-09-22 09:38 | Outpatient (BNVA) | payer OTHER, SELFPAY | PROVIDERS: PCP Emergency Medicine Emergency Medical Services; Visit Provider Internal Medicine Cardiovascular Disease | DX: I25.118 Atherosclerotic heart disease of native coronary artery with other forms of angina pectoris (principal); I65.23 Occlusion and stenosis of bilateral carotid arteries; Z95.2 Presence of prosthetic heart valve; E78.5 Hyperlipidemia, unspecified; I11.0 Hypertensive heart disease with heart failure; I50.32 Chronic diastolic (congestive) heart failure; Z87.891 Personal history of nicotine dependence | CPT/HCPCS: 99214 ==

== ENCOUNTER 2024-12-04 09:48 | Outpatient (CLI) | payer OTHER, SELFPAY ==
--- NOTE | 2024-12-04 10:00 | USCV_ITS ---
Brendan Reyes Age: 84 Gender: M : 1940 Exam Date: 12/04/2024 10:38 Ordering Phys: Abigail White MD ([email or web address]) Technologist: Gabe De Leon Exam Location: [facility] [place] Indication: TAVR BP: 156 / 66 HR: 59 Rhythm: Sinus Technical Quality: Adequate MEASUREMENTS (Male / Female) Normal Values 2D ECHO LV Diastolic Diameter PLAX 3.8 cm 4.2 - 5.9 / 3.9 - 5.3 cm IVS Diastolic Thickness 1.4 cm 0.6 - 1.0 / 0.6 - 0.9 cm IVS Systolic Thickness 1.8 cm LVPW Diastolic Thickness 2.0 cm 0.6 - 1.0 / 0.6 - 0.9 cm LVPW Systolic Thickness 2.2 cm LVOT Diameter 2.0 cm LV Ejection Fraction 2D Teich 64.2 % LV Ejection Fraction MOD 4C 64.0 % LV Ejection Fraction MOD 2C 72.5 % LV Ejection Fraction 2C AL 74.5 % LA Diameter 3.4 cm RA Systolic Volume 4C AL 24.4 ml RA Systolic Volume 4C MOD 24.4 ml LA Sys Volume AL 37.1 cm cubed LA Sys Volume Index AL 19.5 cm cubed/m squared Aorta at Sinotubular Diameter 1.8 cm IVC Diameter 1.6 cm M-MODE LA Ao Ratio MM 1.0 AV Cusp Separation MM 1.1 cm DOPPLER AV Peak Velocity 225.0 cm/s LVOT Peak Velocity 114.0 cm/s AV Area Cont Eq vti 1.3 cm squared AV Area Cont Eq pk 1.6 cm squared MV Peak Velocity 120.0 cm/s MV Area PHT 3.8 cm squared Mitral E to A Ratio 0.8 TV Peak Velocity 316.3 cm/s TR Peak Velocity 365.0 cm/s TR Peak Gradient 53.3 mmHg TR Mean Velocity 300.0 cm/s TR Mean Gradient 37.6 mmHg TR Velocity Time Integral 115.1 cm PV Peak Velocity 93.0 cm/s RV Ejection Time 0.4 s FINDINGS Left Ventricle Normal left ventricular size and systolic function, EF 64%. Mild to moderate concentric left-ventricular hypertrophy.Grade I/IV diastolic dysfunction (abnormal relaxation filling pattern), normal to mildly elevated filling pressures. Right Ventricle Normal right ventricular size and systolic function. Right Atrium Prominent eustachian valve Left Atrium Mildly increased left atrial size. Mitral Valve Moderate mitral annular calcification. Thickened mitral valve. Trace mitral valve regurgitation. Aortic Valve Bioprosthetic valve the aortic position appears to be well- seated. Peak velocity across the valve is 2.25 m/s Tricuspid Valve Mild tricuspid valve regurgitation. Pulmonic Valve No gross abnormalities in Pericardium No pericardial effusion. Aorta Normal aortic annulus size. IVC Normal inferior vena cava. CONCLUSIONS Normal left ventricular size and systolic function, EF 64%. Mild to moderate concentric left-ventricular hypertrophy.Grade I/IV diastolic dysfunction (abnormal relaxation filling pattern), normal to mildly elevated filling pressures. Moderate mitral annular calcification. Thickened mitral valve. Trace mitral valve regurgitation. Mildly increased left atrial size. Prominent eustachian valve in the right atrium. Mild tricuspid valve regurgitation. The bioprosthetic valve the aortic position appears to be well- seated with a peak velocity of 2.25 m/s Estimated pulmonary artery peak systolic pressure 56 mmHg with a mean pressure of 41 consistent with moderate pulmonary hypertension. There is no pericardial effusion. There are no intracardiac masses. Compared to the previous study from 08/19/2023, there is no significant gradient across the pulmonic valve Dr Abigail White MD [facility] (Electronically Signed) Final Date: 06 December 2024 22:38 S
--- NOTE | 2024-12-04 10:45 | USCV_ITS ---
Brendan Reyes Age: 84 Gender: M : 1940 Exam Date: 12/04/2024 10:01 Ordering Phys: Abigail White MD ([email or web address]) Technologist: BASILIA Exam Location: [facility] [place] Indication: stenosis Risk Factors: Previous Vascular Surgery: Right Brachial BP: / Left Brachial BP: / Right Left Velocity (cm/s) Spectral Plaque Velocity (cm/s) Spectral Plaque Syst/Diast Broadening Syst/Diast Broadening 69.80/ 19.30 Prox CCA 78.70 / 21.10 73.80/ 19.30 Mid CCA 89.30 / 22.20 49.40/ 14.70 Distal CCA 73.80 / 16.50 53.70/ 20.60 Prox ICA 79.90 / 22.00 65.10/ 21.50 Mid ICA 77.00 / 24.20 58.90/ 22.10 Distal ICA 79.80 / 23.00 170.60 ECA 105.40 1.10 ICA/CCA 1.10 Antegrade Vertebral Antegrade 64.20/ 20.00 cm/s 79.30/ 15.00 cm/s Tri Subclavian Bi 55.60 51.50 CONCLUSIONS Right ICA stenosis <50%. Moderate atheromatous plaque right carotid bulb/ICA. Left ICA stenosis <50%. Moderate atheromatous plaque left carotid bulb/ICA. Normal antegrade Doppler flow noted in the right vertebral artery. Normal antegrade Doppler flow noted in the left vertebral artery. Michele Castillo MD (Electronically Signed) Final Date: 04 December 2024 16:01 S
== END 2024-12-04 09:49 | disposition home or self-care (01) ==
PROVIDERS: PCP Nurse Practitioner Family; Visit Provider Internal Medicine Cardiovascular Disease
DX: I65.23 Occlusion and stenosis of bilateral carotid arteries (principal); R06.09 Other forms of dyspnea; R93.1 Abnormal findings on diagnostic imaging of heart and coronary circulation; I34.81 Nonrheumatic mitral (valve) annulus calcification; Z96.89 Presence of other specified functional implants; I07.1 Rheumatic tricuspid insufficiency; I27.20 Pulmonary hypertension, unspecified
CPT/HCPCS: 93306; 93880

== ENCOUNTER → 2025-03-22 09:49 | Outpatient (BNVA) | payer OTHER, SELFPAY | PROVIDERS: PCP Nurse Practitioner Family; Visit Provider Nurse Practitioner Family | DX: I25.10 Atherosclerotic heart disease of native coronary artery without angina pectoris (principal); I11.0 Hypertensive heart disease with heart failure; I50.32 Chronic diastolic (congestive) heart failure; I38 Endocarditis, valve unspecified; E78.5 Hyperlipidemia, unspecified; I65.29 Occlusion and stenosis of unspecified carotid artery; Z79.02 Long term (current) use of antithrombotics/antiplatelets; Z79.82 Long term (current) use of aspirin; Z95.2 Presence of prosthetic heart valve; Z87.891 Personal history of nicotine dependence; R00.1 Bradycardia, unspecified | CPT/HCPCS: 99214 ==